=== PATIENT | male | born 1935 | race Caucasian/White ===

== ENCOUNTER 2020-10-27 05:04 | Day surgery (SDC) | payer OTHER ==
[2020-10-25 15:37] VITALS: BMI 30.1
[2020-10-27] MEDS ORDERED: LIDOCAINE HCL/PF 1% SDV 5ML VIAL ONE (07:23)
[2020-10-27] MEDS ORDERED: BUPIVACAINE HCL/PF 0.75% 10 ML VIAL ONE (07:23)
[2020-10-27] MEDS ORDERED: LIDOCAINE HCL 1% PRESERVATIVE FREE - 30ML VIAL IJ ONE (09:22)
[2020-10-27] MEDS ORDERED: TRIAMCINOLONE ACET 40MG/1ML VIAL IJ ONE (09:23)
[2020-10-27] MEDS ORDERED: TRIAMCINOLONE ACET 40MG/1ML VIAL IM ONE (09:23)
[2020-10-27] MEDS ORDERED: BUPIVACAINE HCL/PF 0.5% (5MG/ML) 10 ML VIAL IJ ONE (09:23)
[2020-10-27 10:39] VITALS: BP 135/55; PULSE 54; TEMP 97.7
== END 2020-10-27 09:40 | disposition home or self-care (01) ==
LOC: JASU-SURG 05:04
PROVIDERS: ATTEND Pain Medicine Pain Medicine
PROC: 3E0U33Z Introduction of Anti-inflammatory into Joints, Percutaneous Approach (ICD-10-PCS; principal; 2020-10-27 08:30)
DX: M53.3 Sacrococcygeal disorders, not elsewhere classified (principal)
CPT/HCPCS: 76000-TC-FY

== ENCOUNTER 2021-09-22 18:30 | Emergency (ER) | payer OTHER ==
[2021-09-22 18:38] VITALS: BP 120/72; PULSE 87; TEMP 98.8; BMI 27.2
== END 2021-09-22 20:46 | disposition home or self-care (01) ==
LOC: JER 18:30
DX: S80.822A Blister (nonthermal), left lower leg, initial encounter (principal); M79.605 Pain in left leg; W01.0XXA Fall on same level from slipping, tripping and stumbling without subsequent striking against object, initial encounter
CPT/HCPCS: 73590-TC-LT-FY; 99283-25

== ENCOUNTER 2021-12-24 17:00 | Emergency (ER) | payer OTHER ==
[2021-12-24 17:16] VITALS: BP 91/63; PULSE 76; RESP 17; TEMP 99; BMI 27.9
[2021-12-24 19:08] LABS: BASO % 0.5 % (0-2.0); EOS % 1.4 % (0-4.5); HEMATOCRIT 36.5 % (35.4-49); HEMOGLOBIN 12.2 GM/dL (11.7-16.9); LYMPH % 23.1 % (8-40); MCH 26.7 pg (25.7-33.7); MCHC 33.3 g/dl (32.0-35.9); MEAN CELL VOLUME 80.2 fl (80-96); MEAN PLT VOLUME 8.3 fl (7.5-11.1); MONO % 6.7 % (3.8-10.2); NEUT % 68.3 % (42.8-82.8); PLATELET COUNT 187 10^3/uL (134-434); RBC 4.55 M/mm3 (4.00-5.60); RDW 15.8 % (11.9-15.9); WHITE BLOOD COUNT 9.5 K/mm3 (4.0-10.0)
[2021-12-24] MEDS ORDERED: VANCOMYCIN 1 GM in D5W (PRE-DOCKED) 1,000 MG/250 ML IVPB ONE (19:17)
[2021-12-24] MEDS ORDERED: PIPERACILLIN/TAZOB 3.375 GM 3.375 GM in DEXTROSE 5%-WATER - 50 ML IVPB ONE (19:17)
[2021-12-24 19:31] LABS: CALCIUM 8.7 mg/dL (8.5-10.1)
[2021-12-24 19:32] LABS: ALBUMIN 3.4 g/dl (3.4-5.0); BLOOD UREA NITROGEN 34.2 mg/dL (7-18)
[2021-12-24] MEDS ORDERED: AMOX TR/POT CLAV 875MG/125MG TABLETS (FP) PO ONE (19:32)
[2021-12-24 19:35] LABS: CREATININE 1.5 mg/dL (0.55-1.3)
[2021-12-24 19:37] LABS: BILIRUBIN,TOTAL 0.5 mg/dL (0.2-1); TOT PROT 6.7 g/dl (6.4-8.2)
[2021-12-24] MEDS ORDERED: AMOX TR/POT CLAV 875MG/125MG TABLETS (FP) ONE (19:47)
== END 2021-12-24 19:55 | disposition home or self-care (01) ==
LOC: JER 17:00
DX: L03.116 Cellulitis of left lower limb (principal)
CPT/HCPCS: 36415; 73590-TC-LT-FY; 80053; 85025; 87070; 87186; 87205; 99284-25

== ENCOUNTER 2022-06-18 17:51 | Emergency (ER) | payer OTHER ==
[2022-06-18 18:07] VITALS: BMI 27.9
[2022-06-18 18:58] VITALS: RESP 14
[2022-06-18 19:10] LABS: BASO % 0.1 % (0-2.0); EOS % 0.4 % (0-4.5); HEMATOCRIT 25.1 % (35.4-49); HEMOGLOBIN 7.8 GM/dL (11.7-16.9); LYMPH % 42.9 % (8-40); MCHC 31.2 g/dl (32.0-35.9); MEAN CELL VOLUME 86.5 fl (80-96); MEAN PLT VOLUME 8.4 fl (7.5-11.1); MONO % 2.7 % (3.8-10.2); NEUT % 53.9 % (42.8-82.8); PLATELET COUNT 119 10^3/uL (134-434); RDW 18.1 % (11.9-15.9); WHITE BLOOD COUNT 3.3 K/mm3 (4.0-10.0)
[2022-06-18 19:19] LABS: VENOUS O2 SATURATION 94.8 % (70-80); VENOUS PCO2 40.5 mmHg (38-52); VENOUS PH 7.324 (7.310-7.410)
[2022-06-18 19:36] LABS: CALCIUM 8.3 mg/dL (8.5-10.1)
[2022-06-18 19:37] LABS: ALBUMIN 3.8 g/dl (3.4-5.0); BLOOD UREA NITROGEN 52.6 mg/dL (7-18)
[2022-06-18 19:40] LABS: CREATININE 1.8 mg/dL (0.55-1.3)
[2022-06-18 19:41] LABS: BILIRUBIN,TOTAL 0.5 mg/dL (0.2-1); TOT PROT 6.6 g/dl (6.4-8.2)
[2022-06-18 19:55] LABS: LACTIC ACID 3.2 mmol/L (0.4-2.0)
[2022-06-18 20:06] VITALS: BP 99/54; PULSE 89
[2022-06-18 20:11] VITALS: TEMP 97.6
== END 2022-06-18 20:36 | disposition left against medical advice (07) ==
LOC: JER 17:51
DX: R06.00 Dyspnea, unspecified (principal); I95.9 Hypotension, unspecified
CPT/HCPCS: 0241U-QW; 36415; 71045-TC-FY; 80053; 82272; 82553; 82803; 83605; 83880; 84484; 85025; 86850; 86900; 86901; 87040; 93005; 93010; 99285-25

== ENCOUNTER 2022-06-20 19:08 | Inpatient (IN) | payer OTHER ==
[2022-06-20 19:32] VITALS: BMI 27.9
[2022-06-20] MEDS ORDERED: SODIUM CHLORIDE 0.9% 500 ML INFUS.BAG IV ONE (19:39)
[2022-06-20 19:59] LABS: BASO % 0.3 % (0-2.0); EOS % 1.1 % (0-4.5); HEMATOCRIT 25.5 % (35.4-49); HEMOGLOBIN 7.7 GM/dL (11.7-16.9); LYMPH % 47.5 % (8-40); MCH 26.3 pg (25.7-33.7); MCHC 30.4 g/dl (32.0-35.9); MEAN CELL VOLUME 86.6 fl (80-96); MEAN PLT VOLUME 8.3 fl (7.5-11.1); MONO % 2.5 % (3.8-10.2); NEUT % 48.6 % (42.8-82.8); PLATELET COUNT 108 10^3/uL (134-434); RBC 2.94 M/mm3 (4.00-5.60); RDW 18.1 % (11.9-15.9); WHITE BLOOD COUNT 2.9 K/mm3 (4.0-10.0)
[2022-06-20 20:18] LABS: MAGNESIUM 2.1 mg/dL (1.8-2.4)
[2022-06-20 20:20] LABS: ALBUMIN 3.6 g/dl (3.4-5.0); BLOOD UREA NITROGEN 51.1 mg/dL (7-18); CALCIUM 8.3 mg/dL (8.5-10.1)
[2022-06-20 20:22] LABS: PHOSPHOROUS 4.3 mg/dL (2.5-4.9)
[2022-06-20 20:23] LABS: CREATININE 2.1 mg/dL (0.55-1.3)
[2022-06-20 20:24] LABS: TOT PROT 6.4 g/dl (6.4-8.2)
[2022-06-20 20:25] LABS: BILIRUBIN,TOTAL 0.3 mg/dL (0.2-1)
[2022-06-20 22:14] LABS: INR 1.31 (0.83-1.09); PROTHROMBIN TIME (PATIENT) 15.1 SEC (9.7-13.0)
[2022-06-20 22:17] LABS: ACTIVATED PTT 34.2 SECONDS (25.2-36.5)
[2022-06-21] MEDS ORDERED: SODIUM CHLORIDE 1,000 ML IV SCH (00:30)
[2022-06-21 01:15] LABS: PH,URINE 5.5 (5.0-8.0); URINE APPEARANCE CLEAR; URINE BILIRUBIN NEGATIVE (NEGATIVE); URINE COLOR YELLOW; URINE GLUCOSE (UA) NEGATIVE (NEGATIVE); URINE KETONE NEGATIVE (NEGATIVE); URINE LEUK ESTERASE NEGATIVE (NEGATIVE); URINE NITRITE NEGATIVE (NEGATIVE); URINE PROTEIN NEGATIVE (NEGATIVE); URINE UROBILINOGEN 0.2 mg/dL (0.2-1.0)
[2022-06-21 11:54] LABS: BASO % 0.4 % (0-2.0); EOS % 1.7 % (0-4.5); HEMATOCRIT 31.3 % (35.4-49); HEMOGLOBIN 10.1 GM/dL (11.7-16.9); LYMPH % 52.8 % (8-40); MCH 28.2 pg (25.7-33.7); MCHC 32.1 g/dl (32.0-35.9); MEAN CELL VOLUME 87.7 fl (80-96); MEAN PLT VOLUME 8.4 fl (7.5-11.1); MONO % 1.7 % (3.8-10.2); NEUT % 43.4 % (42.8-82.8); PLATELET COUNT 94 10^3/uL (134-434); RBC 3.57 M/mm3 (4.00-5.60); RDW 17.5 % (11.9-15.9); RETICULOCYTES 4.47 % (0.5-1.5); WHITE BLOOD COUNT 2.6 K/mm3 (4.0-10.0)
[2022-06-21 12:11] LABS: CALCIUM 8.4 mg/dL (8.5-10.1)
[2022-06-21 12:12] LABS: ALBUMIN 3.4 g/dl (3.4-5.0); BLOOD UREA NITROGEN 44.8 mg/dL (7-18); MAGNESIUM 2.1 mg/dL (1.8-2.4)
[2022-06-21 12:15] LABS: CREATININE 1.5 mg/dL (0.55-1.3); PHOSPHOROUS 3.1 mg/dL (2.5-4.9)
[2022-06-21 12:16] LABS: BILIRUBIN,TOTAL 0.7 mg/dL (0.2-1); TOT PROT 6.2 g/dl (6.4-8.2)
[2022-06-21] MEDS ORDERED: FUROSEMIDE 40 MG/4 ML INJECTABLE VIAL IVPUSH ONE (12:45)
[2022-06-21] MEDS: ATORVASTATIN CA 80 MG TABLET (FP) PO SCH (22:00)
[2022-06-21] MEDS: CARVEDILOL 12.5 MG TABLET (FP) PO SCH (22:00)
[2022-06-21] MEDS ORDERED: MONTELUKAST NA 10 MG TABLET PO SCH (22:00)
[2022-06-22 08:40] LABS: HEMATOCRIT 30.4 % (35.4-49); HEMOGLOBIN 9.8 GM/dL (11.7-16.9); MCHC 32.1 g/dl (32.0-35.9); MEAN CELL VOLUME 87.4 fl (80-96); MEAN PLT VOLUME 8.8 fl (7.5-11.1); PLATELET COUNT 91 10^3/uL (134-434); RBC 3.48 M/mm3 (4.00-5.60); RDW 17.3 % (11.9-15.9); WHITE BLOOD COUNT 3.3 K/mm3 (4.0-10.0)
[2022-06-22 09:04] LABS: ALBUMIN 3.3 g/dl (3.4-5.0); BLOOD UREA NITROGEN 40.3 mg/dL (7-18); CALCIUM 8.4 mg/dL (8.5-10.1)
[2022-06-22 09:07] LABS: CREATININE 1.5 mg/dL (0.55-1.3)
[2022-06-22 09:08] LABS: BILIRUBIN,TOTAL 1.1 mg/dL (0.2-1)
[2022-06-22 09:09] LABS: TOT PROT 5.9 g/dl (6.4-8.2)
[2022-06-22 09:38] VITALS: BP 105/58; PULSE 84; RESP 18; TEMP 98.3
[2022-06-22] MEDS: CARVEDILOL 12.5 MG TABLET (FP) PO SCH (09:41)
[2022-06-22] MEDS: ATORVASTATIN CA 80 MG TABLET (FP) PO SCH (09:42)
[2022-06-22] MEDS ORDERED: APIXABAN 5 MG TABLET PO SCH (10:00)
[2022-06-22] MEDS ORDERED: SERTRALINE HCL 50 MG TABLET (FP) PO SCH (10:00)
== END 2022-06-22 11:07 | disposition home or self-care (01) | DRG 808 ==
LOC: JER 19:08 → JERBED 22:46 → J4W 06-21 03:11
PROVIDERS: ADMIT Internal Medicine; ATTEND Internal Medicine
PROC: 30233N1 Transfusion of Nonautologous Red Blood Cells into Peripheral Vein, Percutaneous Approach (ICD-10-PCS; principal; 2022-06-20)
DX: D61.818 Other pancytopenia (principal); I50.43 Acute on chronic combined systolic (congestive) and diastolic (congestive) heart failure; I48.92 Unspecified atrial flutter; N17.9 Acute kidney failure, unspecified; I42.8 Other cardiomyopathies; I47.1 Supraventricular tachycardia; I95.9 Hypotension, unspecified; I25.10 Atherosclerotic heart disease of native coronary artery without angina pectoris; I48.0 Paroxysmal atrial fibrillation; E78.00 Pure hypercholesterolemia, unspecified; J45.909 Unspecified asthma, uncomplicated; I11.0 Hypertensive heart disease with heart failure; H40.9 Unspecified glaucoma; F32.A Depression, unspecified; M54.50 Low back pain, unspecified; I35.1 Nonrheumatic aortic (valve) insufficiency; D46.9 Myelodysplastic syndrome, unspecified; Z95.5 Presence of coronary angioplasty implant and graft; Z85.038 Personal history of other malignant neoplasm of large intestine; Z95.0 Presence of cardiac pacemaker
CPT/HCPCS: 0241U-QW; 36415; 36430; 36511; 71045-TC-FY; 80053; 81003; 82272; 82550; 82570; 82607; 82746; 83010; 83540; 83550; 83615; 83735; 83880; 84100; 84155; 84156; 84165; 84443; 84484; 85025; 85027; 85045; 85362; 85384; 85610; 85730; 86850; 86900; 86901; 86922; 93005; 93010; 93306-TC; 97116-GP; 97162-GP; 99285-25; P9038; P9058